=== PATIENT | female | born 1970 | race Caucasian/White ===

== ENCOUNTER 2021-03-27 10:12 | Emergency (ER) | payer SELFPAY ==
[~2021-03-27] VITALS: Ht 165.1 cm; Wt 77.1 kg
[2021-03-27 10:26] VITALS: BP_SYST 160
--- NOTE | 2021-03-27 10:30 | NUR ---
ER DR. BOLDEN EXAMINING PT IN LOBBY
--- NOTE | 2021-03-27 11:20 | NUR ---
Patient to ER bed 4 to gown for evaluation. Side rails up. Report given to DEJA NAIR.
[2021-03-27 11:25] LABS: BASOPHILS # (AUTO) 0.1 K/uL (0.0-0.2); BASOPHILS % (AUTO) 0.6 % (0.0-2.0); EOSINOPHILS % (AUTO) 0.3 % (0.0-4.0); HEMATOCRIT 45.8 % (36-48); HEMOGLOBIN 15.5 g/dL (12.0-16.0); LYMPHOCYTES # (AUTO) 2.1 K/uL (1.0-5.5); LYMPHOCYTES % (AUTO) 25.3 % (20.5-51.5); MEAN CORPUSCULAR HEMOGLOBIN 32 pg (27-31); MEAN CORPUSCULAR HGB CONC 34 % (32-36); MEAN CORPUSCULAR VOLUME 96 fL (79.0-98.0); MONOCYTES # (AUTO) 0.3 K/uL (0.0-1.0); MONOCYTES % (AUTO) 3.6 % (1.7-9.3); NEUTROPHILS # (AUTO) 5.8 K/uL (1.8-7.7); NEUTROPHILS % (AUTO) 70.2 % (40.0-70.0); PLATELET COUNT (AUTO) 298 K/uL (130-430); RED BLOOD CELL COUNT(AUTO) 4.79 MIL/uL (4.2-6.2); RED CELL DISTRIBUTION WIDTH 14.8 % (9.0-15.0); WHITE BLOOD COUNT (AUTO) 8.2 K/uL (4.8-10.8)
--- NOTE | 2021-03-27 11:25 | NUR ---
PT CAME IN FROM HOME C/O SUBSTERNAL, DULL, NON-RADIATING CHEST PAIN WITH HTN X 3 HOURS. STATES SHE RELAPSED ON ETOH FOR THE LAST WEEK, WAS BINGE DRINKING WINE AND SHOTS OF LIQUOR. STATES SHE HAS A HX OF HTN. PT IS AMBULATORY, AAOX4, V/S STABLE
[2021-03-27 11:40] LABS: CALCIUM 9.5 mg/dL (8.4-11.0); CREATININE 0.8 mg/dL (0.55-1.30); POTASSIUM 4.7 mmol/L (3.5-5.1)
[2021-03-27 11:46] LABS: ALBUMIN 4.2 g/dL (3.4-4.8); TOTAL BILIRUBIN 0.5 mg/dL (0.0-1.0)
[2021-03-27] MEDS ORDERED: NACL 0.9% 1,000 ML IV ONE (13:45)
[2021-03-27] MEDS ORDERED: FOLIC ACID 1 MG, THIAMINE HCL 100 MG, MAGNESIUM SULFATE 1 GM, MVI 10 ML in NACL 0.9% 1,... IV ONE (13:45)
--- NOTE | 2021-03-27 13:55 | NUR ---
# 20 gauge angiocath placed to RAC. Use of asceptic technique. Opsite placed over site. Blood return noted. Blood for lab drawn from site. Flushed with 10 cc of normal saline. No evidence of infiltration noted. Patient tolerated well.
[2021-03-27] MEDS ORDERED: THIAMINE HCL 100 MG, MAGNESIUM SULFATE 1 GM in NS 100 ML IV ONE (14:00)
[2021-03-27] MEDS ORDERED: MAG HYDROX/AL HYDROX/SIMETH 30 ML, DICYCLOMINE HCL 20 MG, LIDOCAINE VISCOUS 2% 15ML (PO... PO ONE ×3 (14:00)
[2021-03-27] MEDS ORDERED: FOLIC ACID 1 MG, MVI 10 ML in NACL 0.9% 1,000 ML IV ONE (14:00)
--- NOTE | 2021-03-27 14:30 | NUR ---
PT PROVIDED WITH LUNCH, TOLERATED WELL, DENIES N/V
[2021-03-27] MEDS ORDERED: LIB25 PO ×4 (15:14→15:42)
[2021-03-27] MEDS ORDERED: chlordiazePOXIDE HCL 25 MG CAPSULE PO ONE (15:30)
[2021-03-27] MEDS ORDERED: LORazepam 2 MG/ML VIAL IVP ONE (15:30)
--- NOTE | 2021-03-27 15:55 | NUR ---
PT AMBULATES TO BATHROOM WITH STEADY GAIT
--- NOTE | 2021-03-27 16:00 | NUR ---
RETURN TO [facility]
[2021-03-27 17:02] VITALS: BP_SYST 146
--- NOTE | 2021-03-27 17:03 | NUR ---
Patient given written and verbal discharge instructions and verbalizes understanding. ER MD discussed with patient the results and treatment provided. Patient in stable condition. ID arm band removed. IV catheter removed intact and dressing applied, no active bleeding. Rx of LIBRIUM given. Patient educated on pain management and to follow up with PMD. Pain Scale 0/10. Opportunity for questions provided and answered. Medication side effect fact sheet provided.
== END 2021-03-27 17:02 | disposition home or self-care (01) ==
LOC: SED 10:12
DX: R07.89 Other chest pain (principal); K29.20 Alcoholic gastritis without bleeding; F10.10 Alcohol abuse, uncomplicated; I10 Essential (primary) hypertension; Z79.899 Other long term (current) drug therapy; Y90.9 Presence of alcohol in blood, level not specified
CPT/HCPCS: 36415; 71045; 80053; 83880; 84484; 85025; 93005; 96365; 96366; 96368; 99285; J2001; J3411; J3475; J3490; J7030